=== PATIENT | female | born 1940 | race Caucasian/White ===

== ENCOUNTER 2021-02-26 00:03 | Inpatient (IN) ==
[2021-02-26] MEDS ORDERED: Acetaminophen 325 MG TABLET PO PRN (03:35)
[2021-02-26] MEDS ORDERED: Melatonin 3 MG TABLET PO PRN (03:35)
[2021-02-26] MEDS ORDERED: Naloxone 0.4 MG/ML INJ IVP PRN (03:35)
[2021-02-26] MEDS: *HR* OxyCODONE Immed Rel 5 MG TABLET PO PRN (04:35)
[2021-02-26] MEDS: Ondansetron 4 MG/2 ML VIAL IVP PRN (04:43)
[2021-02-26 05:47] LABS: Basophils % 0.2 %; Hematocrit 33.8 % (35.3-44.9); Hemoglobin 11.4 g/dL (11.5-15.4); Immature Granulocytes % 0.5 % (0-4); Lymphocytes # 0.8 K/mcL (0.6-4.6); Lymphocytes % 7.3 %; Mean Corpuscular HGB Conc 33.7 g/dL (31.6-35.5); Mean Platelet Volume 11.8 fL (9.4-12.4); Monocytes # 0.6 K/mcL (0.0-1.3); Monocytes % 5.6 %; Neutrophils # 9.6 K/mcL (1.6-8.9); Platelet Count 200 K/mcL (140-400); Red Blood Count 4.07 M/mcL (3.82-4.97); Red Cell Distribution Width 12.5 % (11.5-14.5); Segmented Neutrophils % 86.4 %; White Blood Count 11.1 K/mcL (4.3-11.1)
[2021-02-26 06:07] LABS: Fibrinogen 458 mg/dL (169-393)
[2021-02-26] MEDS ORDERED: *HR* Promethazine 25 MG/ML VIAL IM PRN (06:18)
[2021-02-26] MEDS ORDERED: Perflutren Lipid Microsphere 1.3 ML in 0.9 % Sodium Chloride 8.7 ML IVP PRN (06:19)
[2021-02-26 06:29] LABS: D-Dimer 75130 ng/mLFEU (0-500)
[2021-02-26 06:39] LABS: Ferritin 266 ng/mL (10-120); Lactate Dehydrogenase 311 Units/L (140-271)
[2021-02-26 06:40] LABS: Calcium 8.6 mg/dL (8.6-10.3); Magnesium 2.2 mg/dL (1.6-2.6); Phosphorous 5.1 mg/dL (2.7-4.5); Potassium 3.7 mEq/L (3.5-5.1)
[2021-02-26] MEDS: *HR* Labetalol 20 MG/4 ML SYRINGE IVP PRN ×2 (07:05→22:17)
[2021-02-26 08:46] LABS: C-Reactive Protein 26 mg/L (Less than 10)
[2021-02-26] MEDS ORDERED: Dexamethasone Sodium Phos/PF 10 MG/ML VIAL IVP SCH (09:00)
[2021-02-26] MEDS: carvediloL 6.25 MG TABLET PO SCH ×2 (09:34→16:29)
[2021-02-26] MEDS: Aspirin Enteric Coated 325 MG Tablet PO SCH (09:35)
[2021-02-26] MEDS: amLODIPine 5 MG TABLET PO SCH (16:28)
[2021-02-26] MEDS ORDERED: *HR* Succinylcholine 200 MG/10 ML VIAL IVP ONE (16:35)
[2021-02-26] MEDS ORDERED: Ondansetron 4 MG/2 ML VIAL ONE (16:35)
[2021-02-26] MEDS ORDERED: *HR* Rocuronium Bromide 50 MG/5 ML VIAL ONE (16:35)
[2021-02-26] MEDS ORDERED: Lidocaine -MPF 2% 2 ML VIAL ONE (16:35)
[2021-02-26] MEDS ORDERED: *HR* Propofol 200 MG/20 ML VIAL IVP ONE ×2 (16:36→17:19)
[2021-02-26] MEDS ORDERED: *HR* FentaNYL (PF) 100 MCG/2 ML VIAL ONE (16:36)
[2021-02-26] MEDS: *HR* HYDROcodone/Acet 5/325 mg TABLET PO PRN (22:10)
[2021-02-27] MEDS: carvediloL 6.25 MG TABLET PO SCH ×2 (09:57→20:27)
[2021-02-27] MEDS: Aspirin Enteric Coated 325 MG Tablet PO SCH (09:58)
[2021-02-27] MEDS: amLODIPine 5 MG TABLET PO SCH (09:58)
[2021-02-27] MEDS ORDERED: *HR* Propofol 200 MG/20 ML VIAL IVP ONE (14:22)
[2021-02-27] MEDS ORDERED: Lidocaine -MPF 2% 2 ML VIAL ONE (14:24)
[2021-02-27] MEDS ORDERED: *HR* Rocuronium Bromide 50 MG/5 ML VIAL ONE ×2 (14:27→17:07)
[2021-02-27] MEDS ORDERED: TOTAL JOINT MIXTURE (100ML) INTRAART ONE (14:45)
[2021-02-27] MEDS ORDERED: Povidone-Iodine 45 ML, Sodium Chloride IRRigation 1,000 ML IR ONE (14:45)
[2021-02-27] MEDS ORDERED: Vancomycin 1,000 MG VIAL ONE (14:51)
[2021-02-27] MEDS ORDERED: *HR* FentaNYL (PF) 100 MCG/2 ML VIAL ONE ×2 (14:54→18:00)
[2021-02-27] MEDS ORDERED: Acetaminophen IV 1,000 MG/100 ML BAG IVPB ONE (15:00)
[2021-02-27] MEDS ORDERED: Tranexamic Acid 1,000 MG/10 ML VIAL ONE (16:09)
[2021-02-27] MEDS ORDERED: Ondansetron 4 MG/2 ML VIAL ONE (17:22)
[2021-02-27] MEDS ORDERED: Ondansetron 4 MG/2 ML VIAL IVP PRN (18:40)
[2021-02-27] MEDS: *HR* OxyCODONE Immed Rel 5 MG TABLET PO PRN (20:27)
[2021-02-27] MEDS: CeFAZolin 2 GM/120 ML BAG IVPB SCH (23:26)
[2021-02-28 05:34] LABS: Bacteria,Urine Few per hpf (None-Few); Bilirubin,Urine Negative (Negative); Blood,Urine Moderate (Negative); Clarity,Urine Turbid (Clear); Color,Urine Light-Yellow (Yellow); Glucose,Urine (UA) Normal (Normal); Ketones,Urine Negative (Negative); Leukocyte Esterase,Urine Large (Negative); Mucus,Urine Few per lpf (None-Few); Nitrite,Urine Negative (Negative); Protein,Urine 100 mg/dL (Neg-Trace); RBC,Urine 15-30 per hpf (0-3); Specific Gravity,Urine 1.017 (1.010-1.025); Squamous Epithelial Cell,Urine Few per hpf (None-Few); Urobilinogen,Urine Normal (Normal); WBC,Urine TNTC per hpf (0-3)
[2021-02-28] MEDS: Ringers Solution, Lactated 1,000 ML IVC SCH ×2 (07:22→08:52)
[2021-02-28] MEDS: CeFAZolin 2 GM/120 ML BAG IVPB SCH ×2 (07:54→17:42)
[2021-02-28] MEDS: Multivit/Ca/Min/Fe/FA 1 TAB TABLET PO SCH (07:55)
[2021-02-28] MEDS: carvediloL 6.25 MG TABLET PO SCH ×2 (07:55→17:43)
[2021-02-28] MEDS: Aspirin Enteric Coated 325 MG Tablet PO SCH (07:55)
[2021-02-28] MEDS: amLODIPine 5 MG TABLET PO SCH (07:56)
[2021-02-28] MEDS: Ascorbic Acid 500 MG TABLET PO SCH ×2 (07:56→17:43)
[2021-02-28] MEDS ORDERED: 0.9 % Sodium Chloride 1,000 ML IVC SCH (13:00)
[2021-02-28 18:34] LABS: Immature Granulocytes % 0.4 % (0-4); Lymphocytes # 0.4 K/mcL (0.6-4.6); Lymphocytes % 3.8 %; Mean Corpuscular HGB Conc 34.6 g/dL (31.6-35.5); Mean Corpuscular Hemoglobin 28.5 pg (28.0-33.3); Mean Corpuscular Volume 82.4 fL (83.0-100.0); Mean Platelet Volume 12.2 fL (9.4-12.4); Monocytes # 0.4 K/mcL (0.0-1.3); Monocytes % 3.3 %; Neutrophils # 10.8 K/mcL (1.6-8.9); Platelet Count 163 K/mcL (140-400); Red Cell Distribution Width 12.7 % (11.5-14.5); Segmented Neutrophils % 92.5 %; White Blood Count 11.7 K/mcL (4.3-11.1)
[2021-02-28 18:35] LABS: Hemoglobin 9.7 g/dL (11.5-15.4)
[2021-02-28 18:42] LABS: INR 1.1; Prothrombin Time 13.2 Seconds (9.4-12.1)
[2021-02-28 18:51] LABS: Calcium 7.7 mg/dL (8.6-10.3); Potassium 4.3 mEq/L (3.5-5.1)
[2021-02-28] MEDS: *HR* OxyCODONE Immed Rel 5 MG TABLET PO PRN (19:50)
[2021-03-01] MEDS: CeFAZolin 2 GM/120 ML BAG IVPB SCH ×3 (01:21→16:31)
[2021-03-01] MEDS: *HR* HYDROcodone/Acet 5/325 mg TABLET PO PRN (01:21)
[2021-03-01] MEDS: Ondansetron 4 MG/2 ML VIAL IVP PRN ×3 (02:06→21:47)
[2021-03-01] MEDS: amLODIPine 5 MG TABLET PO SCH (09:12)
[2021-03-01] MEDS: carvediloL 6.25 MG TABLET PO SCH ×2 (09:12→16:31)
[2021-03-01] MEDS: Ascorbic Acid 500 MG TABLET PO SCH ×3 (09:12→16:54)
[2021-03-01] MEDS: Aspirin Enteric Coated 325 MG Tablet PO SCH (09:32)
[2021-03-01] MEDS: Multivit/Ca/Min/Fe/FA 1 TAB TABLET PO SCH (09:32)
[2021-03-01 10:24] LABS: Hematocrit 26.7 % (35.3-44.9); Hemoglobin 9.2 g/dL (11.5-15.4); Mean Corpuscular HGB Conc 34.5 g/dL (31.6-35.5); Mean Corpuscular Hemoglobin 28.5 pg (28.0-33.3); Mean Corpuscular Volume 82.7 fL (83.0-100.0); Mean Platelet Volume 12.4 fL (9.4-12.4); Nucleated Red Blood Cells 0.1 /100 WBC (0); Platelet Count 176 K/mcL (140-400); Red Blood Count 3.23 M/mcL (3.82-4.97); White Blood Count 15.1 K/mcL (4.3-11.1)
[2021-03-01 10:42] LABS: Calcium 7.5 mg/dL (8.6-10.3); Potassium 4.1 mEq/L (3.5-5.1)
[2021-03-01 10:53] LABS: Lymphocytes # 0.6 K/mcL (0.6-4.6); Neutrophils # 14.5 K/mcL (1.6-8.9)
[2021-03-01 10:54] LABS: Platelet Estimate Normal (Normal)
[2021-03-01] MEDS: Ringers Solution, Lactated 1,000 ML IVC SCH (20:45)
[2021-03-02 01:13] LABS: Basophils % 0.1 %; Hematocrit 27.8 % (35.3-44.9); Hemoglobin 9.5 g/dL (11.5-15.4); Immature Granulocytes % 0.4 % (0-4); Lymphocytes # 0.4 K/mcL (0.6-4.6); Lymphocytes % 2.7 %; Mean Corpuscular HGB Conc 34.2 g/dL (31.6-35.5); Mean Corpuscular Hemoglobin 28.5 pg (28.0-33.3); Mean Corpuscular Volume 83.5 fL (83.0-100.0); Mean Platelet Volume 12.7 fL (9.4-12.4); Monocytes # 0.6 K/mcL (0.0-1.3); Monocytes % 3.7 %; Neutrophils # 14.4 K/mcL (1.6-8.9); Platelet Count 174 K/mcL (140-400); Red Blood Count 3.33 M/mcL (3.82-4.97); Red Cell Distribution Width 13.1 % (11.5-14.5); Segmented Neutrophils % 93.1 %; White Blood Count 15.5 K/mcL (4.3-11.1)
[2021-03-02 01:36] LABS: Platelet Estimate Normal (Normal)
[2021-03-02 01:43] LABS: Calcium 7.8 mg/dL (8.6-10.3); Potassium 4.3 mEq/L (3.5-5.1)
[2021-03-02] MEDS ORDERED: Nitroglycerin 0.4 MG TAB.SUBL SL PRN ×2 (07:50→13:31)
[2021-03-02] MEDS ORDERED: cefTRIAXone 2,000 MG in Water for inj. (sterile) 20 ML IVP SCH (08:00)
[2021-03-02] MEDS ORDERED: amLODIPine 5 MG TABLET PO SCH (09:00)
[2021-03-02] MEDS: Ondansetron 4 MG/2 ML VIAL IVP PRN ×2 (09:10→17:47)
[2021-03-02] MEDS: *HR* OxyCODONE Immed Rel 5 MG TABLET PO PRN (09:13)
[2021-03-02] MEDS: carvediloL 6.25 MG TABLET PO SCH ×2 (09:14→17:21)
[2021-03-02] MEDS: amLODIPine 5 MG TABLET PO SCH (09:14)
[2021-03-02] MEDS: Ascorbic Acid 500 MG TABLET PO SCH ×2 (11:50→17:21)
[2021-03-02] MEDS: Multivit/Ca/Min/Fe/FA 1 TAB TABLET PO SCH (11:50)
[2021-03-02] MEDS: Aspirin Enteric Coated 325 MG Tablet PO SCH (11:50)
[2021-03-02] MEDS ORDERED: *HR* Promethazine 25 MG/ML VIAL IM PRN (13:31)
[2021-03-02] MEDS ORDERED: *HR* Labetalol 20 MG/4 ML SYRINGE IVP PRN (13:31)
[2021-03-02] MEDS ORDERED: *HR* HYDROcodone/Acet 5/325 mg TABLET PO PRN (13:31)
[2021-03-02] MEDS ORDERED: Melatonin 3 MG TABLET PO PRN (13:31)
[2021-03-02] MEDS ORDERED: Naloxone 0.4 MG/ML INJ IVP PRN (13:31)
[2021-03-02] MEDS ORDERED: *HR* OxyCODONE Immed Rel 5 MG TABLET PO PRN (13:31)
[2021-03-02] MEDS ORDERED: Acetaminophen 325 MG TABLET PO PRN (13:31)
[2021-03-02] MEDS ORDERED: Ringers Solution, Lactated 1,000 ML IVC SCH (13:31)
[2021-03-02] MEDS ORDERED: Perflutren Lipid Microsphere 1.3 ML in 0.9 % Sodium Chloride 8.7 ML IVP PRN (13:31)
[2021-03-02] MEDS: Ringers Solution, Lactated 1,000 ML IVC SCH ×2 (17:46→17:47)
[2021-03-03 00:59] LABS: Basophils % 0.1 %; Hematocrit 26.2 % (35.3-44.9); Hemoglobin 8.8 g/dL (11.5-15.4); Immature Granulocytes % 1.3 % (0-4); Lymphocytes # 0.4 K/mcL (0.6-4.6); Lymphocytes % 2.4 %; Mean Corpuscular HGB Conc 33.6 g/dL (31.6-35.5); Mean Corpuscular Hemoglobin 27.9 pg (28.0-33.3); Mean Corpuscular Volume 83.2 fL (83.0-100.0); Mean Platelet Volume 12.1 fL (9.4-12.4); Monocytes # 0.6 K/mcL (0.0-1.3); Monocytes % 3.2 %; Neutrophils # 16.1 K/mcL (1.6-8.9); Platelet Count 180 K/mcL (140-400); Red Blood Count 3.15 M/mcL (3.82-4.97); Red Cell Distribution Width 13.8 % (11.5-14.5); White Blood Count 17.4 K/mcL (4.3-11.1)
[2021-03-03 01:19] LABS: Calcium 8.1 mg/dL (8.6-10.3); Potassium 4.4 mEq/L (3.5-5.1)
[2021-03-03] MEDS ORDERED: Furosemide 20 MG/2 ML VIAL IVP ONE ×2 (07:46→11:54)
[2021-03-03] MEDS: carvediloL 6.25 MG TABLET PO SCH ×2 (08:43→18:05)
[2021-03-03] MEDS: amLODIPine 5 MG TABLET PO SCH (08:43)
[2021-03-03] MEDS: cefTRIAXone 2,000 MG in Water for inj. (sterile) 20 ML IVP SCH (08:44)
[2021-03-03] MEDS: Ascorbic Acid 500 MG TABLET PO SCH ×2 (08:45→18:06)
[2021-03-03] MEDS: Multivit/Ca/Min/Fe/FA 1 TAB TABLET PO SCH (08:46)
[2021-03-03] MEDS ORDERED: Albumin 25% 25gram/100mL 25 GM/100 ML IV.SOLN IVPB ONE (11:53)
[2021-03-03] MEDS: Aspirin Enteric Coated 325 MG Tablet PO SCH (12:33)
[2021-03-03] MEDS: Ondansetron 4 MG/2 ML VIAL IVP PRN (22:37)
[2021-03-04 08:23] LABS: Basophils % 0.1 %; Hematocrit 24.2 % (35.3-44.9); Hemoglobin 8.3 g/dL (11.5-15.4); Immature Granulocytes % 2.8 % (0-4); Lymphocytes # 0.3 K/mcL (0.6-4.6); Lymphocytes % 1.5 %; Mean Corpuscular HGB Conc 34.3 g/dL (31.6-35.5); Mean Corpuscular Hemoglobin 28.9 pg (28.0-33.3); Mean Corpuscular Volume 84.3 fL (83.0-100.0); Mean Platelet Volume 12.8 fL (9.4-12.4); Monocytes # 0.9 K/mcL (0.0-1.3); Monocytes % 4.3 %; Nucleated Red Blood Cells 0.2 /100 WBC (0); Platelet Count 179 K/mcL (140-400); Red Blood Count 2.87 M/mcL (3.82-4.97); Red Cell Distribution Width 14.2 % (11.5-14.5); Segmented Neutrophils % 91.3 %; White Blood Count 20.1 K/mcL (4.3-11.1)
[2021-03-04 08:25] LABS: Neutrophils # 18.4 K/mcL (1.6-8.9)
[2021-03-04 08:45] LABS: Blood Urea Nitrogen > 130 mg/dL (8-23); Calcium 8.5 mg/dL (8.6-10.3); Carbon Dioxide 18 mEq/L (23-29); Chloride 113 mEq/L (98-107); Glucose 179 mg/dL (70-105); Potassium 5.1 mEq/L (3.5-5.1); Sodium 147 mEq/L (136-145); eGFR For African Americans 12 (> 60); eGFR For Non-African Americans 10 (> 60)
[2021-03-04 08:48] LABS: Platelet Estimate Normal (Normal)
[2021-03-04] MEDS: cefTRIAXone 2,000 MG in Water for inj. (sterile) 20 ML IVP SCH (09:01)
[2021-03-04] MEDS: carvediloL 6.25 MG TABLET PO SCH ×2 (09:04→16:44)
[2021-03-04] MEDS: Aspirin Enteric Coated 325 MG Tablet PO SCH (09:04)
[2021-03-04] MEDS: Multivit/Ca/Min/Fe/FA 1 TAB TABLET PO SCH (09:05)
[2021-03-04] MEDS: Ascorbic Acid 500 MG TABLET PO SCH ×2 (09:05→16:44)
[2021-03-04] MEDS: amLODIPine 5 MG TABLET PO SCH (09:05)
[2021-03-04] MEDS ORDERED: Heparin 1,000 UNITS/500 mL 500 ML ONE (15:00)
[2021-03-04] MEDS ORDERED: *HR* Heparin 5,000 UNIT/ML VIAL ONE (15:36)
[2021-03-04] MEDS ORDERED: 0.9 % Sodium Chloride 250 ML IVC PRN (16:34)
[2021-03-04] MEDS ORDERED: *HR* Heparin 10,000 UNIT/10 ML VIAL IV PRN (16:34)
[2021-03-04] MEDS: *HR* Heparin 5,000 UNIT/ML VIAL SQ SCH (16:43)
[2021-03-04] MEDS ORDERED: 0.9 % Sodium Chloride 1,000 ML PRIME SCH (16:45)
[2021-03-04 19:07] LABS: Hepatitis B Surface Antibody < 3.10 mIU/mL
[2021-03-04 19:16] LABS: Hepatitis B Surface Antigen Nonreactive (Nonreactive)
[2021-03-04] MEDS ORDERED: Furosemide 40 MG/4 ML VIAL ONE (20:49)
[2021-03-04] MEDS ORDERED: Furosemide 40 MG/4 ML VIAL IVP ONE (21:05)
[2021-03-05 01:30] LABS: Hemoglobin 8.3 g/dL (11.5-15.4); Immature Reticulocyte % 21.3 % (11.0-38.0); Mean Corpuscular HGB Conc 33.2 g/dL (31.6-35.5); Mean Corpuscular Hemoglobin 27.8 pg (28.0-33.3); Mean Corpuscular Volume 83.6 fL (83.0-100.0); Mean Platelet Volume 12.9 fL (9.4-12.4); Nucleated Red Blood Cells 0.4 /100 WBC (0); Platelet Count 180 K/mcL (140-400); Red Blood Count 2.99 M/mcL (3.82-4.97); Red Cell Distribution Width 14.2 % (11.5-14.5); Retculocyte # 0.05 M/mcL (0.05-0.10); Reticulocyte % 1.6 % (1.6-2.8); White Blood Count 21.8 K/mcL (4.3-11.1)
[2021-03-05 01:45] LABS: Calcium 8.4 mg/dL (8.6-10.3)
[2021-03-05 01:46] LABS: Complement C3 77 mg/dL (87-200)
[2021-03-05 01:47] LABS: Rheumatoid Factor 23 IU/mL (Less than 14)
[2021-03-05 01:48] LABS: Creatine Kinase 1019 Units/L (30-223); Iron 49 mcg/dL (50-170)
[2021-03-05 01:50] LABS: Lymphocytes # 0.9 K/mcL (0.6-4.6); Monocytes # 0.9 K/mcL (0.0-1.3); Neutrophils # 20.1 K/mcL (1.6-8.9)
[2021-03-05 01:51] LABS: Anisocytosis 1+ (Not Present); Platelet Estimate Normal (Normal); Poikilocytosis 1+ (Not Present); Toxic Granulation Present (Not Present)
[2021-03-05 02:06] LABS: Ferritin 1092 ng/mL (10-120)
[2021-03-05 02:11] LABS: Folate 15.1 ng/mL (3.0-16.0)
[2021-03-05 02:43] LABS: Vitamin B12 > 1500 pg/mL (250-1100)
[2021-03-05 03:14] LABS: % Iron Saturation 32 % (15-50); Transferrin 110 mg/dL (203-362)
[2021-03-05] MEDS: *HR* Heparin 5,000 UNIT/ML VIAL SQ SCH ×2 (05:22→17:10)
[2021-03-05] MEDS ORDERED: 0.9 % Sodium Chloride 250 ML IVC PRN (07:36)
[2021-03-05] MEDS ORDERED: *HR* Heparin 10,000 UNIT/10 ML VIAL IV PRN (07:36)
[2021-03-05] MEDS ORDERED: 0.9 % Sodium Chloride 1,000 ML PRIME SCH ×2 (07:45→17:00)
[2021-03-05] MEDS: Multivit/Ca/Min/Fe/FA 1 TAB TABLET PO SCH (08:36)
[2021-03-05] MEDS: carvediloL 6.25 MG TABLET PO SCH ×3 (08:36→17:11)
[2021-03-05] MEDS: Ascorbic Acid 500 MG TABLET PO SCH ×3 (08:36→17:11)
[2021-03-05] MEDS: amLODIPine 5 MG TABLET PO SCH ×2 (08:37→10:03)
[2021-03-05] MEDS: Aspirin Enteric Coated 325 MG Tablet PO SCH ×2 (08:37→10:03)
[2021-03-05] MEDS: cefTRIAXone 2,000 MG in Water for inj. (sterile) 20 ML IVP SCH (08:38)
[2021-03-05 12:06] LABS: Adenovirus Not Detected (Not Detect); Coronavirus 229E Not Detected (Not Detect); Coronavirus HKU1 Not Detected (Not Detect); Coronavirus NL63 Not Detected (Not Detect); Coronavirus OC43 Not Detected (Not Detect)
[2021-03-05 12:07] LABS: Bordetella Pertussis Not Detected (Not Detect); Chlamydophila pneumoniae Not Detected (Not Detect); Human Metapneumovirus Not Detected (Not Detect); Human Rhinovirus/Enterovirus Not Detected (Not Detect); Influenza A Subtype 2009 H1 Not Detected (Not Detect); Influenza B Not Detected (Not Detect); Mycoplasma pneumoniae Not Detected (Not Detect); Parainfluenza Virus 1 Not Detected (Not Detect); Parainfluenza Virus 2 Not Detected (Not Detect); Parainfluenza Virus 3 Not Detected (Not Detect); Parainfluenza Virus 4 Not Detected (Not Detect); Respiratory Syncytial Virus Not Detected (Not Detect)
[2021-03-05 12:08] LABS: SARS-CoV-2 DETECTED (Not Detect)
[2021-03-05] MEDS ORDERED: 0.9 % Sodium Chloride 1,000 ML PRIME ONE ×2 (16:48)
[2021-03-05] MEDS ORDERED: *HR* Heparin 5,000 UNIT/ML VIAL IVP PRN (16:48)
[2021-03-05] MEDS: Ipratropium 1 PUFF INHALER IH SCH ×3 (17:55→23:50)
[2021-03-05] MEDS ORDERED: *HR* LORazepam 2 MG/ML VIAL IVP ONE (21:10)
[2021-03-05] MEDS ORDERED: Albumin 25% 25gram/100mL 25 GM/100 ML IV.SOLN IVPB ONE (22:07)
[2021-03-06] MEDS: PrismaSATE BGK 4/2.5 5,000 ML CRRT SCH ×6 (01:00→11:00)
[2021-03-06] MEDS: Norepinephrine 4 MG/254 ML IV.SOLN IVC SCH ×3 (02:00→08:26)
[2021-03-06] MEDS ORDERED: *HR* Heparin 5,000 UNIT/ML VIAL ONE (02:02)
[2021-03-06] MEDS: Ipratropium 1 PUFF INHALER IH SCH ×5 (03:54→20:21)
[2021-03-06 03:58] LABS: Basophils % 0.2 %; Hemoglobin 6.8 g/dL (11.5-15.4)
[2021-03-06 04:00] LABS: Immature Platelets 14.6 % (1.1-6.1); Lymphocytes # 0.3 K/mcL (0.6-4.6); Lymphocytes % 1.4 %; Mean Corpuscular HGB Conc 32.4 g/dL (31.6-35.5); Mean Corpuscular Hemoglobin 27.9 pg (28.0-33.3); Mean Corpuscular Volume 86.1 fL (83.0-100.0); Mean Platelet Volume 13.4 fL (9.4-12.4); Monocytes # 0.4 K/mcL (0.0-1.3); Monocytes % 2.2 %; Neutrophils # 16.6 K/mcL (1.6-8.9); Nucleated Red Blood Cells 1.9 /100 WBC (0); Platelet Count 156 K/mcL (140-400); Red Blood Count 2.44 M/mcL (3.82-4.97); Red Cell Distribution Width 14.8 % (11.5-14.5); Segmented Neutrophils % 93.2 %; White Blood Count 17.8 K/mcL (4.3-11.1)
[2021-03-06 04:08] LABS: ABG Base Excess -6 mEq/L (-2 to 3); ABG HCO3 21 mEq/L (21-27); ABG Oxygen Saturation 95 % (95-98); ABG PCO2 46 mmHg (35-45); ABG PH 7.26 pH Units (7.32-7.45); ABG PO2 85 mmHg (85-104); ABG TCO2 22 mEq/L (20-26)
[2021-03-06 04:16] LABS: Platelet Estimate Normal (Normal)
[2021-03-06 04:22] LABS: Creatinine,Urine 71 mg/dL; Microalbumin,Urine > 1350 mg/L; Protein/Creatinine Ratio,Urine 3.62 mg/mg (0.00-0.20); Sodium, Urine 30.4 mEq/L
[2021-03-06 04:33] LABS: Albumin/Globulin Ratio 1.3 (1.1-2.2); Bilirubin,Total 1.9 mg/dL (0.3-1.0); Calcium 7.8 mg/dL (8.6-10.3); Globulin 2.3 g/dL (2.4-3.5); Magnesium 2.9 mg/dL (1.6-2.6); Phosphorous 6.8 mg/dL (2.7-4.5); Potassium 6.4 mEq/L (3.5-5.1); Total Protein 5.3 g/dL (6.4-8.9)
[2021-03-06] MEDS: Calcium Gluconate 1gm/50mL 1 GM/50 ML BAG IVPB SCH ×2 (05:04→06:21)
[2021-03-06] MEDS: *HR* Heparin 5,000 UNIT/ML VIAL SQ SCH (06:20)
[2021-03-06] MEDS ORDERED: 0.9 % Sodium Chloride 250 ML ONE (07:43)
[2021-03-06] MEDS: Multivit/Ca/Min/Fe/FA 1 TAB TABLET PO SCH (08:47)
[2021-03-06] MEDS: carvediloL 6.25 MG TABLET PO SCH (08:47)
[2021-03-06] MEDS: Aspirin Enteric Coated 325 MG Tablet PO SCH (08:47)
[2021-03-06] MEDS: amLODIPine 5 MG TABLET PO SCH (08:47)
[2021-03-06] MEDS: Ascorbic Acid 500 MG TABLET PO SCH (08:47)
[2021-03-06] MEDS ORDERED: cefTRIAXone 1,000 MG in Water for inj. (sterile) 10 ML IVP SCH (09:00)
[2021-03-06] MEDS ORDERED: Morphine Sulfate 2 MG/ML SYRINGE IVP PRN (09:46)
[2021-03-06] MEDS ORDERED: Albuterol 2.5 MG/3 ML NEBULIZER IH PRN (09:46)
[2021-03-06] MEDS ORDERED: *HR* LORazepam 2 MG/ML VIAL IVP PRN ×2 (09:46→14:08)
[2021-03-06] MEDS ORDERED: Norepinephrine 4 MG/254 ML IV.SOLN IVC SCH ×2 (10:45)
[2021-03-06 14:04] VITALS: BP 156/45
[2021-03-06] MEDS ORDERED: FentaNYL (PF) 1,000 MCG/100 ML IV.SOLN IVC SCH (14:15)
[2021-03-06 19:54] VITALS: TEMP 102.4
[2021-03-06 20:02] VITALS: PULSE 68
[2021-03-06 20:25] VITALS: O2SAT 83
[2021-03-06 23:07] LABS: Lambda Qnt Free Light Chains 68.42 mg/L (5.71-26.30)
[2021-03-07 10:02] LABS: Kappa Qnt Free Light Chains 120.88 mg/L (3.30-19.40)
[2021-03-07 10:12] LABS: Serine Protease-3 Antibody 0 AU/mL (0-19)
[2021-03-07 10:19] LABS: ANA IgG by ELISA DETECTED (None Detected)
[2021-03-08 20:19] LABS: ANA HEp-2 IgG IFA DETECTED (<1:80); Anti Nuclear Ab Pattern HOMOGENEOUS
== END 2021-03-06 23:16 | disposition expired | DRG 521 ==
LOC: 3NENU → SUATTDRO 02:22 → 2NNU 03-02 16:51 → ICNU 03-05 08:45
PROVIDERS: ADMIT Internal Medicine; ATTEND Internal Medicine